=== PATIENT | male | born 1985 | race Caucasian/White ===

== ENCOUNTER 2018-12-06 15:08 | Emergency (ER) | payer OTHER ==
[~2018-12-06] VITALS: Ht 180.3 cm; Wt 74.0 kg
--- NOTE | 2018-12-06 15:43 | NUR ---
PATIENT PRESENTS TO ED TODAY FOR DIARRHEA X 5 DAYS, REPORTS 8 TIMES TODAY. DENIES N/V AND ABD PAIN. FAMILY AT BEDSIDE, AWAITING MD ORDERS, CALL LIGHT WITHIN REACH.
[2018-12-06] MEDS ORDERED: LOPERAMIDE 2 MG CAPSULE ONE (15:53)
[2018-12-06 15:58] VITALS: BP 115/81
[2018-12-06] MEDS ORDERED: LOPERAMIDE 2 MG CAPSULE PO ONE (16:00)
[2018-12-06 16:03] LABS: BASOPHILS # (AUTO) 0.02 x10^3/uL (0-0.1); BASOPHILS % (AUTO) 0 % (0-1); EOSINOPHILS # (AUTO) 0.39 x10^3/uL (0-0.4); EOSINOPHILS % (AUTO) 6 % (1-7); LYMPHOCYTES # (AUTO) 1.23 x10^3/uL (1-3.4); LYMPHOCYTES % (AUTO) 19 % (22-44); MD NO; MEAN CORPUSCULAR HEMOGLOBIN 33.2 pg (27.5-34.5); MEAN CORPUSCULAR HGB CONC 34.4 g/dL (33.2-36.2); MEAN CORPUSCULAR VOLUME 96.7 fL (81-97); MEAN PLATELET VOLUME 7.8 fL (7.4-10.4); MONOCYTES # (AUTO) 1.04 x10^3/uL (0.2-0.8); MONOCYTES % (AUTO) 16 % (2-9); NEUTROPHILS # (AUTO) 3.84 x10^3/uL (1.8-6.8); NEUTROPHILS % (AUTO) 59 % (42-75); PLATELET COUNT 201 x10^3/uL (130-400); RED BLOOD COUNT 5.76 x10^6/uL (4.38-5.82); RED CELL DISTRIBUTION WIDTH 12.7 % (9.4-14.8)
--- NOTE | 2018-12-06 16:06 | NUR ---
MEDICATIONS ADMINISTERED PER MD ORDER, VS UPDATED IN CHART, PATIENT PROVIDED HAT FOR STOOL SAMPLE, UNABLE TO PROVIDE SAMPLE AT THIS TIME. GERARDO.
[2018-12-06 16:10] LABS: ALANINE AMINOTRANSFERASE 47 U/L (12-78); ANION GAP 7 mmol/L (5-15); CALCIUM 9.2 mg/dL (8.5-10.1); CHLORIDE 110 mmol/L (98-107); CREATININE 1.06 mg/dL (0.7-1.3)
[2018-12-06 16:12] LABS: ALKALINE PHOSPHATASE 77 U/L (45-117); BILIRUBIN,TOTAL 0.5 mg/dL (0.2-1.0); TOTAL PROTEIN 7.3 g/dL (6.4-8.2)
--- NOTE | 2018-12-06 16:27 | NUR ---
RESULTS BACK, CHART UP FOR RECHECK. PATIENT UNABLE TO HAVE BM FOR STOOL SAMPLE. PATIENT SITTING IN [employer] PLAYING ON CELL PHONE,
--- NOTE | 2018-12-06 17:18 | NUR ---
STOOL SAMPLE COLLECTED AND WALKED TO LAB. MD AT BEDSIDE, PATIENT TO BE DC'D, PATIENT INSTRUCTED RESULTS WILL BE CALLED TO PATIENT IF POSSITIVE. AWAITING DC PAPERWORK. PATIENT SITTING IN GERARDO HERNANDEZ.
--- NOTE | 2018-12-06 17:28 | NUR ---
Patient/Caregiver given discharge instructions and they have confirmed that they understand the instructions. Patient ambulatory with steady gait.
[2018-12-06 18:00] LABS: CLOSTRIDIUM DIFFICILE ANTIGEN NEGATIVE; CLOSTRIDIUM DIFFICILE TOXIN NEGATIVE (Negative)
== END 2018-12-06 17:29 | disposition home or self-care (01) ==
LOC: ED 16:48
DX: R19.7 Diarrhea, unspecified (principal); R10.9 Unspecified abdominal pain; F17.200 Nicotine dependence, unspecified, uncomplicated
CPT/HCPCS: 36415; 80053; 85025; 87324; 89055; 99283

== ENCOUNTER 2020-02-26 12:54 | Day surgery (SDC) | payer OTHER ==
[~2020-02-26] VITALS: Ht 180.3 cm; Wt 75.0 kg
[2020-02-26] MEDS ORDERED: MIDAZOLAM 1 MG/ML, 2ML ONE (13:57)
[2020-02-26] MEDS ORDERED: FENTANYL PF 250 MCG/5ML ONE ×2 (13:57→15:54)
[2020-02-26] MEDS ORDERED: NO MEDS PER PATIENT (14:12)
[2020-02-26 14:17] VITALS: BP 115/79
[2020-02-26] MEDS ORDERED: LACTATED RINGERS 1,000 ML IV SCH (14:23)
[2020-02-26] MEDS ORDERED: CHLORHEXIDINE 15 ML UDC MM ONE (14:30)
[2020-02-26] MEDS ORDERED: CEFAZOLIN 1,000 MG ONE (14:34)
[2020-02-26] MEDS ORDERED: PROPOFOL 10 MG/ML, 20ML ONE (14:34)
[2020-02-26] MEDS ORDERED: ROCURONIUM 10MG/ML,5ML ONE (14:34)
[2020-02-26] MEDS ORDERED: NEOSTIGMINE 1 MG/ML, 10ML ONE (14:34)
[2020-02-26] MEDS ORDERED: GLYCOPYRROLATE 0.2MG/1ML, 5ML ONE (14:34)
[2020-02-26] MEDS ORDERED: EPINEPHRINE 1 MG/ML, 1ML ONE (15:07)
[2020-02-26] MEDS ORDERED: BUPIVACAINE/PF 0.5% ONE (15:07)
[2020-02-26] MEDS ORDERED: ONDANSETRON 2MG/ML, 2ML ONE (15:27)
[2020-02-26] MEDS ORDERED: DEXAMETHASONE 4 MG/ML, 1ML ONE (15:27)
[2020-02-26] MEDS ORDERED: MEPERIDINE/PF 25MG/0.5ML IVPush PRN (15:30)
[2020-02-26] MEDS ORDERED: HYDROmorphone 1 MG/ML, 1ML INJ IVPush PRN (15:30)
[2020-02-26] MEDS ORDERED: hydrALAzine 20 MG/ML, 1ML IV PRN (15:30)
[2020-02-26] MEDS ORDERED: LABETALOL 5MG/ML, 20ML IV PRN (15:30)
[2020-02-26] MEDS ORDERED: OXYcodone 5 MG/5 ML ORAL.SOL UDC PO PRN (15:30)
[2020-02-26] MEDS ORDERED: ACETAMINOPHEN 325 MG TABLET PO PRN (15:30)
[2020-02-26] MEDS ORDERED: morphine SULFATE 10 MG/ML, 1ML IVPush PRN (15:30)
[2020-02-26] MEDS ORDERED: FENTANYL PF 100 MCG/2ML IV PRN (15:30)
[2020-02-26] MEDS ORDERED: ONDANSETRON 2MG/ML, 2ML IVPush PRN (15:30)
[2020-02-26] MEDS ORDERED: BUPIVACAINE/PF-EPI 0.5% 1:200K INFIL ONE (15:55)
[2020-02-26] MEDS ORDERED: MEPERIDINE/PF 25MG/ML,1ML ONE (16:34)
== END 2020-02-26 18:10 | disposition home or self-care (01) ==
LOC: OUT 12:54
PROVIDERS: ATTEND Orthopaedic Surgery
DX: S42.022A Displaced fracture of shaft of left clavicle, initial encounter for closed fracture (principal); Z20.828 Contact with and (suspected) exposure to other viral communicable diseases; F17.210 Nicotine dependence, cigarettes, uncomplicated; V89.2XXA Person injured in unspecified motor-vehicle accident, traffic, initial encounter; W55.82XA Struck by other mammals, initial encounter; Y93.55 Activity, bike riding; Y92.411 Interstate highway as the place of occurrence of the external cause; Y99.8 Other external cause status
CPT/HCPCS: 23515; 36415; 73000; 87635; C1713; J0171; J0690; J1100; J2175; J2250; J2405; J2704; J2710; J3010; J7120; 76000